=== PATIENT | male | born 1990 | race Caucasian/White ===

== ENCOUNTER 2018-04-24 11:21 | Emergency (ER) | payer OTHER ==
[~2018-04-24] VITALS: Wt 100.0 kg
[2018-04-24 11:23] VITALS: BP 139/63; PULSE 74; RESP 18
[2018-04-24] MEDS ORDERED: NAPR-985 PO (13:23)
[2018-04-24] MEDS ORDERED: HYDR-4011 PO (13:23)
--- NOTE | 2018-04-24 14:06 | ERD ---
ER Documentation Chief Complaint Chief Complaint RIGHT FOOT PAIN HPI 28-year-old male presenting with pain to right fifth toe. Patient walked into a wall last night and his toe was pointing the wrong direction. He has some mild numbness and tingling. He has not taken medications for pain. He noticed some significant swelling and pain to the toe. Denies medical problems. Allergic to penicillin. Surgical history denies. Social history smokes 1 cigarette a day and marijuana daily. ROS All systems reviewed and are negative except as per history of present illness. Medications Home Meds Active Scripts Naproxen* (Naprosyn*) 500 Mg Tablet, 500 MG PO BID PRN for PAIN AND/OR INFLAMMATION, #30 TAB Prov:FRED MORATAYA PA-C 04/24/18 Hydrocodone/Acetaminophen ([place] 5-325 Tablet) 1 Each Tablet, 1 TAB PO Q6H PRN for PAIN, #7 TAB Prov:FRED MORATAYA PA-C 04/24/18 Reported Medications [None] No Conflict Check 06/21/09 Allergies Allergies: Coded Allergies: Penicillins (Verified Allergy, Mild, HIVES, 06/21/09) PMhx/Soc Medical and Surgical Hx: pt denies Medical Hx, pt denies Surgical Hx History of Surgery: No Hx Neurological Disorder: No Hx Respiratory Disorders: No Hx Cardiac Disorders: No Hx Miscellaneous Medical Probl: No Hx Alcohol Use: No Hx Substance Use: No Hx Tobacco Use: No Smoking Status: Never smoker FmHx Family History: No diabetes, No coronary disease, No other Physical Exam Vitals Vital Signs Date Temp Pulse Resp B/P (MAP) Pulse Ox O2 O2 Flow FiO2 Time Delivery Rate 04/24/18 98.1 74 18 139/63 99 11:23 (88) Physical Exam GENERAL: The patient is well-appearing, well-nourished, in no acute distress CHEST: Clear to auscultation bilaterally. There are no rales, wheezes or rhonchi. HEART: Regular rate and rhythm. No murmurs, clicks, rubs or gallops. No S3 or S4. EXTREMITIES: Tender to palpation over right fifth digit. No obvious deformity and no crepitus. Mild swelling noted. NEUROLOGIC: Sensation grossly intact. SKIN: Bruising noted to the right fifth toe. No laceration or abrasion. Procedures/MDM DIAGNOSTIC IMAGING REPORT Patient: TRISTIAN SANTOS : 1990 Age: 28 Sex: M MR #: [id number] DOS: 04/24/18 1220 Ordering MD: XOCHITL MORATAYA PA-C Location: [facility] Room/Bed: PROCEDURE: XR right fifth toe CLINICAL INDICATION: Pain TECHNIQUE: AP, oblique, and lateral radiographs were submitted. COMPARISON: None FINDINGS: Osseous structures: A nondisplaced oblique fracture is seen to the shaft of the proximal phalanx of the right fifth toe. The osseous elements otherwise appear intact. Joint spaces: are well maintained, with no significant spurring, erosion or joint effusion evident. Soft tissues: appear unremarkable. IMPRESSION: Essentially nondisplaced oblique fracture involving the mid shaft of the proximal phalanx of the right fifth toe. ER course: Orthostatic given ED. Crutches given ED. MDM: 28-year-old male presenting with findings consistent with toe fracture. Patient is recommended to refrain from weightbearing activities and recommended to follow-up with orthopedist. Patient is told to take medication as needed for pain control. Patient is told symptoms change or worsen to return immediately to the ER. All questions answered at discharge Departure Diagnosis: Primary Impression: Toe fracture Condition: Stable Patient Instructions: Fracture, Toe [Closed] Referrals: KEIRA SALEH MD [facility] Hours: Sat-Sat 9:00 AM - 5:00 PM Additional Instructions: FOLLOW UP WITH YOUR PRIMARY CARE PHYSICIAN TOMORROW.Return to this facility if you are not improving as expected. FRED MORATAYA PA-C Apr 24, 2018 14:06
== END 2018-04-24 14:16 | disposition home or self-care (01) ==
LOC: FTE 11:21
DX: S92.514A Nondisplaced fracture of proximal phalanx of right lesser toe(s), initial encounter for closed fracture (principal); F17.210 Nicotine dependence, cigarettes, uncomplicated; W22.01XA Walked into wall, initial encounter; Y92.9 Unspecified place or not applicable
CPT/HCPCS: 73660

== ENCOUNTER 2018-12-08 08:37 | Emergency (ER) | payer OTHER ==
[~2018-12-08] VITALS: Ht 180.3 cm; Wt 87.5 kg
[~2018-12-08 08:37] MED LIST: HYDR-4011 PO; IBUP800T48 PO; NAPR-985 PO; PANT40TA4 PO
[2018-12-08 08:38] VITALS: BP 121/64; PULSE 54; RESP 18; Ht 180.3 cm; Wt 87.5 kg
== END 2018-12-08 11:07 | disposition home or self-care (01) ==
LOC: E/R 08:37
DX: R55 Syncope and collapse (principal); S61.211A Laceration without foreign body of left index finger without damage to nail, initial encounter; S00.531A Contusion of lip, initial encounter; W01.198A Fall on same level from slipping, tripping and stumbling with subsequent striking against other object, initial encounter; W26.8XXA Contact with other sharp object(s), not elsewhere classified, initial encounter; Y92.9 Unspecified place or not applicable
CPT/HCPCS: 12001; 93005; Z7502